=== PATIENT | female | born 1965 | race Caucasian/White ===

== ENCOUNTER 2024-08-09 12:23 | Outpatient (RCR) | payer BC, SELFPAY | END 2025-02-05 23:59 | disposition home or self-care (01) | LOC: CCIC 12:23 | PROVIDERS: Visit Provider Clinical Nurse Specialist | DX: C64.1 Malignant neoplasm of right kidney, except renal pelvis (principal); C78.02 Secondary malignant neoplasm of left lung | CPT/HCPCS: 99211 ==